=== PATIENT | female | born 1985 ===

== ENCOUNTER 2016-11-19 14:26 | Emergency (ER) | payer SELFPAY | END 2016-11-19 15:30 | disposition left against medical advice (07) | LOC: D.ER 14:26 | DX: S30.861A Insect bite (nonvenomous) of abdominal wall, initial encounter (principal); W57.XXXA Bitten or stung by nonvenomous insect and other nonvenomous arthropods, initial encounter; Y93.89 Activity, other specified; Y92.89 Other specified places as the place of occurrence of the external cause ==